=== PATIENT | female | born 1975 | race African-American/Black ===

== ENCOUNTER 2020-09-11 21:16 | Emergency (ER) | payer OTHER ==
--- NOTE | 2020-09-11 22:14 | ED ---
General Adult HPI - General Chief complaint: Recheck/Abnormal Lab/Rx Stated complaint: Covid Test Time Seen by Provider: 09/11/20 21:21 Source: patient Mode of arrival: ambulatory Limitations: no limitations - History of Present Illness Initial comments: 45-year-old female presents to the emergency room for a covid test. Patient is trying to go to [place]. Patient is [place] but lives in [place]. She was trying to cross back over and they required a test results as negative. Patient denies any symptoms or exposures.Patient has no other complaints at this time including shortness of breath, chest pain, abdominal pain, nausea or vomiting, headache, or visual changes. - Related Data Allergies Allergy/AdvReac Type Severity Reaction Status Date / Time No Known Allergies Allergy Verified 09/11/20 21:17 Review of Systems ROS Statement: Those systems with pertinent positive or pertinent negative responses have been documented in the HPI. ROS Other: All systems not noted in ROS Statement are negative. Past Medical History Past Medical History: No Reported History History of Any Multi-Drug Resistant Organisms: None Reported Past Surgical History: Section Past Psychological History: No Psychological Hx Reported Smoking Status: Never smoker Past Alcohol Use History: None Reported Past Drug Use History: None Reported General Exam Limitations: no limitations General appearance: alert, in no apparent distress Head exam: Present: atraumatic, normocephalic, normal inspection Eye exam: Present: normal appearance, PERRL, EOMI. Absent: scleral icterus, conjunctival injection, periorbital swelling ENT exam: Present: normal exam Neck exam: Present: normal inspection, full ROM Neurological exam: Present: alert Course Vital Signs 09/11/20 21:17 Temperature 98.2 F Pulse Rate 92 Respiratory 16 Rate Blood Pressure 145/87 O2 Sat by Pulse 100 Oximetry Medical Decision Making - Medical Decision Making Vitals are stable. Patient is well-appearing. Patient is denying any symptoms, just needs a coronavirus test. This was negative. Patient discharged home. Will return here for any worsening symptoms. Disposition Clinical Impression: Lab test negative for COVID-19 virus Disposition: HOME SELF-CARE Condition: Good Instructions (If sedation given, give patient instructions): Coronavirus Disease 2019 (COVID-19) Additional Instructions: Please follow up with primary care. Return to the emergency room for any worsening symptoms. Is patient prescribed a controlled substance at d/c from ED?: No Referrals: Rochelle Posey MD [REFERRING] - 1-2 days Time of Disposition: 22:14
[2020-09-11 22:22] VITALS: BP 127/77; PULSE 71; RESP 20; TEMP 98
== END 2020-09-11 22:22 | disposition home or self-care (01) ==
LOC: EC 21:16
DX: Z20.822 Contact with and (suspected) exposure to COVID-19 (principal)
CPT/HCPCS: 87635; 99282